=== PATIENT | male | born 1990 | race Caucasian/White ===

== ENCOUNTER 2024-06-16 06:10 | Emergency (ER) | payer OTHER ==
[2024-06-16 06:20] VITALS: BP 129/78; PULSE 86; RESP 20; TEMP 97.5; BMI 39.9
[2024-06-16 08:03] LABS: PH,URINE 5.5 (5.0-8.0); URINE APPEARANCE CLEAR; URINE BILIRUBIN NEGATIVE (NEGATIVE); URINE COLOR YELLOW; URINE GLUCOSE (UA) NEGATIVE (NEGATIVE); URINE KETONE NEGATIVE (NEGATIVE); URINE LEUK ESTERASE NEGATIVE (NEGATIVE); URINE NITRITE NEGATIVE (NEGATIVE); URINE PROTEIN NEGATIVE (NEGATIVE); URINE UROBILINOGEN 0.2 mg/dL (0.2-1.0)
[2024-06-16 13:07] LABS: HIV INTERPRETATION NEGATIVE (NEGATIVE)
== END 2024-06-16 11:06 | disposition home or self-care (01) ==
LOC: JER 06:10
DX: N50.811 Right testicular pain (principal); N50.82 Scrotal pain
CPT/HCPCS: 36415; 76870-TC; 81003; 86803; 87086; 87389; 87491; 87591; 99284-25

== ENCOUNTER 2024-06-19 00:49 | Emergency (ER) | payer OTHER ==
[2024-06-19 00:58] VITALS: BP 153/84; PULSE 97; RESP 20; TEMP 97.8; BMI 39.9
[2024-06-19 01:17] LABS: PH,URINE 5.5 (5.0-8.0); URINE APPEARANCE CLEAR; URINE BILIRUBIN NEGATIVE (NEGATIVE); URINE COLOR YELLOW; URINE GLUCOSE (UA) NEGATIVE (NEGATIVE); URINE KETONE NEGATIVE (NEGATIVE); URINE LEUK ESTERASE NEGATIVE (NEGATIVE); URINE NITRITE NEGATIVE (NEGATIVE); URINE PROTEIN NEGATIVE (NEGATIVE)
[2024-06-19] MEDS ORDERED: KETOROLAC TROMETHAMINE 30 MG/1 ML VIAL ONE (02:12)
[2024-06-19] MEDS: KETOROLAC TROMETHAMINE 30 MG/1 ML VIAL IM ONE (02:15)
== END 2024-06-19 02:51 | disposition home or self-care (01) ==
LOC: JER 00:49
PROC: 3E0133Z Introduction of Anti-inflammatory into Subcutaneous Tissue, Percutaneous Approach (ICD-10-PCS; principal; 2024-06-19)
DX: M79.651 Pain in right thigh (principal); M25.561 Pain in right knee
CPT/HCPCS: 81003; 87086; 99284-25